=== PATIENT | male | born 1945 | race Caucasian/White ===

== ENCOUNTER 2017-10-16 17:19 | Observation (INO) ==
[2017-10-16] MEDS ORDERED: Furosemide 40 MG TABLET PO ONE (19:45)
--- NOTE | 2017-10-16 19:49 | Emergency Department Note ---
Disposition Clinical Impression: Localized swelling of both lower legs Disposition: Admitted As Inpatient Condition: Fair Referrals: Marquis Lee DO [Primary Care Provider] - Forms: ED Satisfaction Letter Time of Disposition: 19:59 General Adult HPI - General Chief complaint: ED Shortness of Breath/Dyspnea Stated complaint: GAGAN, "CHF, abnormal labs" Time Seen by Provider: 10/16/17 17:48 Source: patient Mode of arrival: ambulatory Limitations: no limitations Nursing Notes Reviewed: Yes Vital Signs Reviewed: Yes - History of Present Illness HPI Narrative: 72M presenting with increased shortness of breath, orthopnea, dyspnea on exertion, bilateral leg swelling worsening since about 2 weeks ago. PMH significant for HTN, smoking, alcohol use, no ND/stroke. He has not been diagnosed with CHF. He denies fever, headache, chest pain, productive cough, or abdominal pain. He was recently here for pancreatitis, discharged 10/14. Pain Scale: 0 - Related Data Home Medications Medication Instructions Recorded Confirmed RX: Aspirin [Adult Low Dose 81 mg PO DAILY 04/22/15 10/16/17 Aspirin EC] RX: Metoprolol [Lopressor] 50 mg PO BID 04/22/15 10/16/17 RX: Ranitidine HCl [Zantac] 150 mg PO DAILY 04/22/15 10/16/17 RX: Simvastatin [Zocor] 20 mg PO HS 04/22/15 10/16/17 RX: Tamsulosin [Flomax] 0.4 mg PO DAILY 04/22/15 10/16/17 RX: Cyanocobalamin (Vitamin B-12) 1,000 mcg PO DAILY 10/11/17 10/16/17 [Vitamin B12] RX: HYDROcodone/Acet 5/325 mg 1 tab PO BID PRN 10/11/17 10/16/17 [[place] 5-325 mg] RX: Lisinopril [Zestril] 20 mg PO DAILY 10/11/17 10/16/17 RX: Magnesium Oxide [Mag-Ox] 400 mg PO DAILY 10/11/17 10/16/17 RX: Multivitamin [One Daily 1 each PO DAILY 10/11/17 10/16/17 Multivitamin] RX: Ondansetron ODT [Zofran ODT] 4 mg PO Q4-6H PRN 10/11/17 10/16/17 Previous Rx's Medication Instructions Recorded Pantoprazole Sodium [Protonix] 40 mg PO DAILY 7 Days #7 tablet. 10/14/17 Allergies Allergy/AdvReac Type Severity Reaction Status Date / Time venom-honey bee Allergy Swelling Verified 10/16/17 17:30 [bee venom (honey bee)] of Lip/Tongue/Throat All systems ED: reviewed and negative except as stated. Constitutional: Denies: fever Eyes: Denies: vision change Cardiovascular: Reports: dyspnea on exertion. Denies: chest pain Respiratory: Denies: cough, wheezes Gastrointestinal: Denies: abdominal pain, nausea, vomiting Genitourinary: Denies: dysuria Musculoskeletal: Denies: back pain Integumentary: Reports: other (leg swelling) Neurological: Denies: headache Psychiatric: Denies: anxiety Endocrine: Denies: fatigue Past Medical History - Past Medical History Medical history: Reports: CHF, diabetes, hypertension, renal disease, other Surgical history: Reports: appendectomy, herniorrhaphy, other Psychiatric history: Reports: no psych history - Social History Smoking Status: Current every day smoker Smokeless Tobacco Status: No Alcohol use: Reports: heavy Drug use: Reports: none Physical Exam - General Limitations: no limitations General appearance: alert - Head Head exam: atraumatic, normocephalic - Eye Eye exam: Present: EOMI - Respiratory Respiratory exam: Present: normal lung sounds bilaterally. Absent: respiratory distress - Cardiovascular Cardiovascular exam: Present: regular rate, normal rhythm. Absent: JVD - Abdominal Exam Abdominal exam: Present: soft, Non-Tender - Extremities Exam Extremities exam: Present: pedal edema. Absent: calf tenderness - Neurological Exam Neurological exam: Present: alert, oriented X3 - Psychiatric Psychiatric exam: Present: normal affect - Skin Skin exam: Present: warm. Absent: cyanosis, diaphoresis Course Course Narrative: 72M on exam shows bilateral lower extremity swelling, dyspnea on exertion, orthopnea. His lungs are clear, heart sounds unremarkable, normal vital signs except for elevated blood pressure. CXR does not show cardiopulmonary process. His BNP is 390. ECG shows no st elevation or depression. We are giving him Lasix 40mg for swelling and Lopressor 5mg IVP for his elevated BPs. While his lab/imaging workup does not strongly correlate with CHF, his presentation with precipitous drop in physical activity tolerance is concerning for inpatient evaluation. This case was discussed with the admitting hospitalist who has kindly agreed to evaluate him for possible CHF exacerbation. Vital Signs Temperature 98.1 F 10/16/17 17:31 Pulse Rate 75 10/16/17 17:31 Respiratory Rate 24 10/16/17 17:31 Blood Pressure 194/104 10/16/17 17:31 O2 Sat by Pulse Oximetry 98 10/16/17 17:31 Temperature 98.1 F 10/16/17 17:31 Pulse Rate 75 10/16/17 17:31 Respiratory Rate 24 10/16/17 17:31 Blood Pressure 194/104 10/16/17 17:31 O2 Sat by Pulse Oximetry 98 10/16/17 17:31 Oxygen Delivery Oxygen Delivery Room Air Medical Decision Making - Medical Records Medical records reviewed: Yes I reviewed the patient's medical records. - Lab Data Lab results reviewed: Yes I reviewed the patient's lab results. Result diagrams: 10/16/17 19:03 Lab Results 10/16/17 10/16/17 Range/Units 19:03 19:03 Sodium 135 L (136-145) mEq/L Potassium 4.7 (3.5-5.1) mEq/L Chloride 102 (98-107) mEq/L Carbon Dioxide 25 (23-29) mEq/L BUN 13 (8-23) mg/dL Creatinine 0.92 (0.70-1.30) mg/dL Est GFR ( Amer) > 60 (> 60) Est GFR (Non-Af Amer) > 60 (> 60) BUN/Creatinine Ratio 14 (6-26) Glucose 90 (70-105) mg/dL Calculated Osmolality 280 (280-300) Calcium 9.6 (8.6-10.3) mg/dL Troponin I < 0.03 (< 0.04) ng/mL B-Natriuretic Peptide 434 H (Less than 100) pg/mL - Radiology Data Radiology results reviewed: Yes I reviewed the patient's radiology results. Chest X-Ray 10/16/17 18:37 IMPRESSION: 1. Senescent pulmonary changes. 2. Calcific atherosclerosis aorta. 3. Sequela from old granulomatous disease. D/ / Lon Peter / Lon Peter Interpreting Provider: Lon Peter - EKG Data EKG #1 EKG attestation: Yes I reviewed and interpreted this EKG.
[2017-10-16 19:52] LABS: Troponin I < 0.03 ng/mL (< 0.04)
[2017-10-16 19:53] LABS: BUN/Creatinine Ratio 14 (6-26); Blood Urea Nitrogen 13 mg/dL (8-23); Calcium 9.6 mg/dL (8.6-10.3); Carbon Dioxide 25 mEq/L (23-29); Chloride 102 mEq/L (98-107); Glucose 90 mg/dL (70-105); Osmolality,Calculated 280 (280-300); Potassium 4.7 mEq/L (3.5-5.1); Sodium 135 mEq/L (136-145); eGFR For African Americans > 60 (> 60); eGFR For Non-African Americans > 60 (> 60)
[2017-10-16] MEDS ORDERED: *HR* Metoprolol 5 MG/5 ML VIAL IVP ONE (19:57)
--- NOTE | 2017-10-16 20:17 | Emergency Department Note ---
START Narrative - START START: I examined this patient and my medical decision-making was reviewed with the Resident Physician. I agree with the documented findings, disposition and treatment plan as described except to the extent set forth below. 72-year-old male had presented to the emergency room for dyspnea. States is worse with exertion. He is unable to ambulate around the house before coming short of breath. This is new for him as well as the bilateral lower extremity edema. Patient was admitted to the hospital last week for pancreatitis. He states the swelling in his legs is symmetrical in his bowels both lower extremities. He started having some of the shortness of breath prior to his admission. Feels like its getting worse now. His chest x-ray does not show any significant volume overload nor is his BNP significantly elevated however on clinical exam he does have lots of swelling in his lower legs and he states he is very dyspneic on with exertion. I feel he needs to be admitted for further cardiac workup with an echo and cardiology evaluation.
--- NOTE | 2017-10-16 21:38 | Internal Med History&Physical ---
Date of Encounter: 10/16/17 Time of Encounter: 21:00 Assessment and Plan (1) Bilateral lower extremity edema Current visit: Yes Status: Acute Patient reports of bilateral lower extremity edema for the last 2 weeks. BNP slightly elevated and chest x-ray without signs vascular congestion Will continue IV diuresis started in the ER Will also order echocardiogram (2) Dyspnea on exertion Current visit: Yes Status: Acute Patient with lower extremity edema as above with slightly elevated BNP Echocardiogra ordered as above (3) Mass of pancreas Current visit: No Status: Suspected Pancreatic head mass was discovered on CT abdomen last admission for acute pancreatitis Recommendations for consideration of contrast-enhanced MRI after resolution of pancreatitis as an outpatient; lipase levels slightly elevated on admission (4) HTN (hypertension), benign Current visit: Yes Status: Acute Will continue home dose of beta lilo and VIKI inhibitor (5) HLD (hyperlipidemia) Current visit: Yes Status: Acute Continue statin Qualifiers: Hyperlipidemia type: unspecified Qualified Code(s): E78.5 - Hyperlipidemia , unspecified (6) BPH (benign prostatic hyperplasia) Current visit: Yes Status: Acute Continue Flomax Qualifiers: Lower urinary tract symptom detail: unspecified Qualified Code(s): N40.1 - Benign prostatic hyperplasia with lower urinary tract symptoms (7) Smoker Current visit: Yes Status: Acute Smoking cessation (8) DVT prophylaxis Current visit: No Status: Acute Subcutaneous heparin Internal Medicine - H&P: HPI Admitted From: Home Plans for Post Hospital Care: Home History of present illness: Patient is a 72-year-old male with past medical history significant for hypertension, GERD, BPH, 50 pack year smoker, former alcohol dependence and recent pancreatitis who presents to the ER on 10/16/17 due to worsening shortness of breath and lower extremity swelling. Patient reports of noticing dyspnea on exertion which has gradually gotten worse over the last year. He did notice significant change in the last 2 weeks in addition to the onset of lower extremity edema. Patient was recently discharged on 10/14/17 for acute pancreatitis and was seen at primary care providers office today for follow-up. Labs are drawn and patient was found to have elevated BNP and was directed to go to the ER for further evaluation. The ER, patient was found to have a BNP of 380 but chest x-ray with no evidence of vascular congestion. Patient did have bilateral lower extremity edema present on exam. He will be admitted to medical surgical floor for further evaluation and management. Past Med Surg Social Fam HX - Past Medical History Medical history: CHF, diabetes, hypertension, renal disease, other Psychiatric history: no psych history - Past Surgical History Surgical History: appendectomy, herniorrhaphy, other - Social History Smoking Status: Current every day smoker Smokeless Tobacco Status: No Alcohol use: heavy Drug use: none Internal Medicine - H&P: Meds Aspirin [Adult Low Dose Aspirin EC] 81 mg PO DAILY 04/22/15 [History] Metoprolol [Lopressor] 50 mg PO BID 04/22/15 [History] Ranitidine HCl [Zantac] 150 mg PO DAILY 04/22/15 [History] Simvastatin [Zocor] 20 mg PO HS 04/22/15 [History] Tamsulosin [Flomax] 0.4 mg PO DAILY 04/22/15 [History] Cyanocobalamin (Vitamin B-12) [Vitamin B12] 1,000 mcg PO DAILY 10/11/17 [History ] HYDROcodone/Acet 5/325 mg [[place] 5-325 mg] 1 tab PO BID PRN 10/11/17 [History] Lisinopril [Zestril] 20 mg PO DAILY 10/11/17 [History] Magnesium Oxide [Mag-Ox] 400 mg PO DAILY 10/11/17 [History] Multivitamin [One Daily Multivitamin] 1 each PO DAILY 10/11/17 [History] Ondansetron ODT [Zofran ODT] 4 mg PO Q4-6H PRN 10/11/17 [History] Pantoprazole Sodium [Protonix] 40 mg PO DAILY 7 Days #7 tablet. 10/14/17 [Rx] 3 Allergy/AdvReac Type Severity Reaction Status Date / Time venom-honey bee Allergy Swelling Verified 10/16/17 17:30 [bee venom (honey bee)] of Lip/Tongue/Throat All Systems PM: A 10-system review of systems was performed and is negative for pertinent findings except as documented above in the HPI. - Constitutional Vitals: Temp Pulse Resp BP Pulse Ox 98.1 F 74 18 183/106 94 10/16/17 17:31 10/16/17 20:34 10/16/17 20:34 10/16/17 20:34 10/16/17 20:34 General appearance: Present: A&O X 3, no acute distress, obese - Head Head exam: Present: normocephalic - Eye Eye exam: Present: normal appearance - ENT ENT exam: Present: mucous membranes moist - Respiratory Respiratory exam: Present: CTAB. Absent: accessory muscle use, rales, rhonchi, wheezes - Cardiovascular Cardiovascular exam: Present: RRR, +S1, +S2. Absent: diastolic murmur, gallop, rubs, systolic murmur - GI/Abdominal GI/Abdominal exam: Present: normal bowel sounds, soft, no peritoneal signs. Absent: distended, tenderness - Expanded Lower Extremities Exam Lower Leg exam: Present: swelling (Bilateral lower extremity edema up to the knee) - Neurological Exam Neurological exam: Present: oriented X3 - Psychiatric Psychiatric exam: Present: normal mood - Skin Skin exam: Present: normal color Internal Med - H&P Results - Labs CBC & Chem 7: 10/16/17 19:03 Labs: BMP 10/16/17 19:03 Sodium 135 L Potassium 4.7 Chloride 102 Carbon Dioxide 25 BUN 13 Creatinine 0.92 Glucose 90 Calcium 9.6 Cardiac Enzymes 10/16/17 Range/Units 19:03 Troponin I < 0.03 (< 0.04) ng/mL - Impressions ITS Impressions Chest X-Ray 10/16/17 18:37 IMPRESSION: 1. Senescent pulmonary changes. 2. Calcific atherosclerosis aorta. 3. Sequela from old granulomatous disease. D/ / Lon Peter / Lon Peter Interpreting Provider: Lon Peter
[2017-10-16] MEDS ORDERED: Naloxone 0.4 MG/ML INJ IVP PRN (21:47)
[2017-10-16] MEDS ORDERED: *HR* HYDROcodone/Acet 5/325 mg TABLET PO PRN (21:49)
[2017-10-16] MEDS ORDERED: Ondansetron ODT 4 MG TAB.RAPDIS PO PRN (23:02)
[2017-10-16] MEDS: *HR* Heparin 5,000 UNIT/ML VIAL SQ SCH (23:22)
[2017-10-17 04:16] LABS: Basophils % 0.4 %; Eosinophils # 0.1 K/mcL (0.0-0.6); Eosinophils % 1.9 %; Hematocrit 39.6 % (37.5-50.1); Hemoglobin 13.9 g/dL (12.9-16.9); Immature Granulocytes % 0.5 % (0-4); Lymphocytes # 1.3 K/mcL (0.6-4.6); Lymphocytes % 17.9 %; Mean Corpuscular HGB Conc 35.1 g/dL (31.6-35.5); Mean Corpuscular Hemoglobin 35.5 pg (28.0-33.3); Mean Corpuscular Volume 101.3 fL (83.0-100.0); Mean Platelet Volume 9.7 fL (9.4-12.4); Monocytes # 1.1 K/mcL (0.0-1.3); Monocytes % 14.6 %; Neutrophils # 4.8 K/mcL (1.6-8.9); Platelet Count 177 K/mcL (140-400); Red Blood Count 3.91 M/mcL (4.19-5.50); Red Cell Distribution Width 13.2 % (11.5-14.5); Segmented Neutrophils % 64.7 %
[2017-10-17 04:36] LABS: Troponin I 0.03 ng/mL (< 0.04)
[2017-10-17 04:38] LABS: BUN/Creatinine Ratio 14 (6-26); Blood Urea Nitrogen 13 mg/dL (8-23); Calcium 9.6 mg/dL (8.6-10.3); Carbon Dioxide 24 mEq/L (23-29); Chloride 99 mEq/L (98-107); Glucose 90 mg/dL (70-105); Osmolality,Calculated 282 (280-300); Potassium 3.8 mEq/L (3.5-5.1); Sodium 136 mEq/L (136-145); eGFR For African Americans > 60 (> 60); eGFR For Non-African Americans > 60 (> 60)
[2017-10-17] MEDS: *HR* Heparin 5,000 UNIT/ML VIAL SQ SCH ×3 (05:13→22:27)
[2017-10-17] MEDS: Aspirin Enteric Coated 81 MG Tablet PO SCH (08:47)
[2017-10-17] MEDS: Magnesium Oxide 400 MG TABLET PO SCH (08:47)
[2017-10-17] MEDS: Lisinopril 20 MG TABLET PO SCH (08:47)
[2017-10-17] MEDS: Acetaminophen 325 MG TABLET PO PRN ×2 (08:47→22:33)
[2017-10-17] MEDS: Multivit/Ca/Min/Fe/FA 1 TAB TABLET PO SCH (08:48)
[2017-10-17] MEDS: Cyanocobalamin (B-12) 1,000 MCG TABLET PO SCH (08:48)
[2017-10-17] MEDS: Furosemide 40 MG/4 ML VIAL IVP SCH ×2 (08:48→19:41)
[2017-10-17] MEDS ORDERED: Perflutren Lipid Microsphere 1.3 ML in 0.9 % Sodium Chloride 8.7 ML IVP ONE (10:23)
--- NOTE | 2017-10-17 10:30 | Internal Med Progress Note ---
Date of Encounter: 10/17/17 Time of Encounter: 09:00 - Assessment and plan (1) Mass of pancreas Current Visit: No Status: Suspected Assessment and plan: Concerning for malignancy. Further workup as outpatient. (2) DVT prophylaxis Current Visit: No Status: Acute Assessment and plan: Subcutaneous heparin. (3) Bilateral lower extremity edema Current Visit: Yes Status: Acute Assessment and plan: Patient presents with symptoms concerning for acute decompensated congestive heart failure.? Chronic component. I suspect this may be due to diastolic CHF given his elevated blood pressures. Cannot rule out ischemic or alcoholic cardiomyopathy as well. Echocardiogram is pending. Continue with IV Lasix twice a day as renal function allows. Continue beta lilo namely Lopressor 50 mg by mouth twice a day. Aspirin 81 mg by mouth daily. Await echo studies. Further tighten blood pressure control. (4) Dyspnea on exertion Current Visit: Yes Status: Acute (5) BPH (benign prostatic hyperplasia) Current Visit: Yes Status: Acute Qualifiers: Lower urinary tract symptom detail: unspecified Qualified Code(s): N40.1 - Benign prostatic hyperplasia with lower urinary tract symptoms (6) Smoker Current Visit: Yes Status: Acute Assessment and plan: Counseling. (7) HLD (hyperlipidemia) Current Visit: Yes Status: Acute Qualifiers: Hyperlipidemia type: unspecified Qualified Code(s): E78.5 - Hyperlipidemia , unspecified (8) HTN (hypertension), benign Current Visit: Yes Status: Acute Assessment and plan: Blood pressure remains elevated. I will increase his Lopressor to 100 mg by mouth twice a day. Monitor. - Time Spent With Patient Total time spent is greater than 50% in coordination of care (as documented) at patient's floor/unit and/or counseling patient: 25 - 35 minutes - Subjective Interval history: Hosp Course (adm 10/11-10/14/17) Mr. Springer is a 72 year old male admitted for acute pancreatitis. He was admitted to general medical floor. He was made NPO and started on IVF. Nausea/ vomiting and pain were controlled with anti-emetics and oxycodone. Patient improved throughout admission. Lipase normalized the day after admission. He was started on clear liquid diet on day 2. He tolerated this well. He had an episode of SOB after ambulating to the bathroom overnight. EKG and troponins were obtained and were WNL. It was thought that he may have had some withdrawal symptoms. Issues resolved with supplemental O2 and ativan. This morning, he was feeling better with no similar episodes. He states that pain has resolved. He tolerated a regular diet for breakfast this morning. He wants to go home. He has been counselled on alcohol and tobacco cessation for 10 minutes today. He will complete 7 days of PO protonix as outpatient, then this medication will be discontinued. He will follow up with PCP in 2-3 days after discharge. PCP can refer him for contrast MRI to further evaluate pancreatic mass noted on CT abdomen, once he is fully over this episode of acute pancreatitis. Patient has met maximum benefit of this hospitalization and will be discharged home in stable condition. Adm 10/16/17: CC: SOB HPI:Patient is a 72-year-old male with past medical history significant for hypertension, GERD, BPH, 50 pack year smoker, former alcohol dependence and recent pancreatitis who presents to the ER on 10/16/17 due to worsening shortness of breath and lower extremity swelling. Patient reports of noticing dyspnea on exertion which has gradually gotten worse over the last year. He did notice significant change in the last 2 weeks in addition to the onset of lower extremity edema. Patient was recently discharged on 10/14/17 for acute pancreatitis and was seen at primary care providers office today for follow-up. Labs are drawn and patient was found to have elevated BNP and was directed to go to the ER for further evaluation. The ER, patient was found to have a BNP of 380 but chest x-ray with no evidence of vascular congestion. Patient did have bilateral lower extremity edema present on exam. He will be admitted to medical surgical floor for further evaluation and management. 10/17: Today patient states his breathing is much improved. He has been diuresing well with IV Lasix. She states he has been noticing progressive shortness of breath since discharge from the hospital. Patient denies any chest pain. No nausea, vomiting, diarrhea. No abdominal pain. No fevers or chills. He continues to have swelling in his legs but states it is not any different than usual. - Constitutional Vitals: Temp Pulse Resp BP Pulse Ox 98.3 F 88 16 156/83 96 10/17/17 07:19 10/17/17 07:24 10/17/17 07:19 10/17/17 07:19 10/17/17 07:19 General appearance: Present: A&O X 3, no acute distress, obese Internal Medicine: Result - Labs CBC & Chem 7: 10/17/17 03:35 10/17/17 03:35 Labs: Short CBC 10/17/17 Range/Units 03:35 WBC 7.5 (4.3-11.1) K/mcL Hgb 13.9 (12.9-16.9) g/dL Hct 39.6 (37.5-50.1) % Plt Count 177 (140-400) K/mcL Neutrophils # 4.8 (1.6-8.9) K/mcL BMP 10/17/17 03:35 Sodium 136 Potassium 3.8 Chloride 99 Carbon Dioxide 24 BUN 13 Creatinine 0.95 Glucose 90 Calcium 9.6 Cardiac Enzymes 10/16/17 10/17/17 10/17/17 Range/Units 23:06 03:35 09:29 Troponin I 0.03 0.03 < 0.03 (< 0.04) ng/mL Consult Discharge Plan - Plan Referrals: Marquis Lee DO [Primary Care Provider] - 10/24/17 9:45 am
--- NOTE | 2017-10-17 19:33 | Electrocardiograph Report ---
[address] [address] Test Date: 2017-10-16 Pat Name: Braulio Springer Department: 103 Room: 3B Gender: M Procurement Agent: LRS : [id number] Requested By: Hudson Garcia Order Number: [id number] Reading MD: Joshua Vitale Measurements Intervals [place] Rate: 77 P: 49 MI: 189 QRS: -18 QRSD: 104 T: -1 QT: 393 QTc: 425 Interpretive Statements SINUS RHYTHM WITH FREQUENT VENTRICULAR PREMATURE COMPLEXES BASELINE ARTIFACT Electronically Signed On 10-17-2017 19:32:03 EDT by Joshua Vitale
[2017-10-17] MEDS: Metoprolol 100 MG TABLET PO SCH (19:41)
[2017-10-18] MEDS: *HR* Heparin 5,000 UNIT/ML VIAL SQ SCH (05:56)
[2017-10-18] MEDS: Acetaminophen 325 MG TABLET PO PRN (06:07)
[2017-10-18 06:21] LABS: Hematocrit 40.9 % (37.5-50.1); Hemoglobin 14.3 g/dL (12.9-16.9); Mean Corpuscular Hemoglobin 35.5 pg (28.0-33.3); Mean Corpuscular Volume 101.5 fL (83.0-100.0); Mean Platelet Volume 9.7 fL (9.4-12.4); Platelet Count 200 K/mcL (140-400); Red Blood Count 4.03 M/mcL (4.19-5.50); Red Cell Distribution Width 13.2 % (11.5-14.5)
[2017-10-18 06:47] LABS: BUN/Creatinine Ratio 19 (6-26); Blood Urea Nitrogen 20 mg/dL (8-23); Calcium 9.5 mg/dL (8.6-10.3); Carbon Dioxide 30 mEq/L (23-29); Chloride 100 mEq/L (98-107); Glucose 110 mg/dL (70-105); Osmolality,Calculated 291 (280-300); Potassium 3.2 mEq/L (3.5-5.1); Sodium 139 mEq/L (136-145); eGFR For African Americans > 60 (> 60); eGFR For Non-African Americans > 60 (> 60)
[2017-10-18 06:58] LABS: Thyroid Stimulating Hormone 2.195 mcIU/mL (0.340-5.600)
[2017-10-18] MEDS ORDERED: hydrALAZINE 25 MG TABLET PO SCH (09:00)
[2017-10-18] MEDS: Lisinopril 20 MG TABLET PO SCH (09:25)
[2017-10-18] MEDS: Magnesium Oxide 400 MG TABLET PO SCH (09:25)
[2017-10-18] MEDS: Cyanocobalamin (B-12) 1,000 MCG TABLET PO SCH (09:25)
[2017-10-18] MEDS: Multivit/Ca/Min/Fe/FA 1 TAB TABLET PO SCH (09:25)
[2017-10-18] MEDS: Metoprolol 100 MG TABLET PO SCH (09:25)
[2017-10-18] MEDS: Aspirin Enteric Coated 81 MG Tablet PO SCH (09:26)
[2017-10-18] MEDS: Furosemide 40 MG/4 ML VIAL IVP SCH (09:26)
--- NOTE | 2017-10-18 09:46 | Discharge Summary ---
- NOTES TO OUTPATIENT PROVIDER Notes to Outpatient Provider: Patient was admitted with acute on chronic diastolic CHF. Was started on Lasix and will need his renal function checked along with electrolytes in 2-3 days. Recommend close follow-up. We also uptitrated his blood pressure medications and added in hydralazine as well. Recc outpt sleep study. MRI pancreas as previosuly recc. Orders not resulted at time of discharge: Pending orders 10/19/17 04:00 Basic Metabolic Panel AM 0400 Complete Blood Count w/o Diff [HEME] AM 0400 10/20/17 04:00 Basic Metabolic Panel AM 0400 Complete Blood Count w/o Diff [HEME] AM 0400 Date of Encounter: 10/18/17 Time of Encounter: 09:00 - Discharge Diagnosis (1) Acute on chronic diastolic CHF (congestive heart failure) Priority: Primary Status: Acute (2) Mass of pancreas Priority: Secondary Status: Suspected Comments: Outpatient workup as previously arranged (3) BPH (benign prostatic hyperplasia) Priority: Secondary Status: Acute Qualifiers: Lower urinary tract symptom detail: unspecified Qualified Code(s): N40.1 - Benign prostatic hyperplasia with lower urinary tract symptoms (4) Smoker Priority: Secondary Status: Acute (5) HLD (hyperlipidemia) Priority: Secondary Status: Acute Qualifiers: Hyperlipidemia type: unspecified Qualified Code(s): E78.5 - Hyperlipidemia , unspecified (6) HTN (hypertension), benign Priority: Secondary Status: Acute Hospital course: Hosp Course from previous admission (adm 10/11-10/14/17) Mr. Springer is a 72 year old male admitted for acute pancreatitis. He was admitted to general medical floor. He was made NPO and started on IVF. Nausea/ vomiting and pain were controlled with anti-emetics and oxycodone. Patient improved throughout admission. Lipase normalized the day after admission. He was started on clear liquid diet on day 2. He tolerated this well. He had an episode of SOB after ambulating to the bathroom overnight. EKG and troponins were obtained and were WNL. It was thought that he may have had some withdrawal symptoms. Issues resolved with supplemental O2 and ativan. This morning, he was feeling better with no similar episodes. He states that pain has resolved. He tolerated a regular diet for breakfast this morning. He wants to go home. He has been counselled on alcohol and tobacco cessation for 10 minutes today. He will complete 7 days of PO protonix as outpatient, then this medication will be discontinued. He will follow up with PCP in 2-3 days after discharge. PCP can refer him for contrast MRI to further evaluate pancreatic mass noted on CT abdomen, once he is fully over this episode of acute pancreatitis. 10/19/27: Present Admission/Hospital Course: Patient was admitted and placed on IV Lasix 40 mg twice a day. He diuresed over 4 L with this. He remained hypertensive and his blood pressure medications were uptitrated to Lopressor 100 mg by mouth twice a day and lisinopril 20 mg by mouth daily. Additionally hydralazine 25 mg by mouth twice a day was added. Echo did not definitively diagnose diastolic dysfunction, but in the setting of chronic hypertension it was suspected that patient did have acute on chronic diastolic dysfunction. On day of discharge he was feeling well. Satting well on room air and ambulatory. BP control improved. I had a long discussion with the patient about CHF and precipitating factors, also emphasized the importance of checking daily weights. I also discussed this with his . We discussed smoking cessation as well as a low-salt diet. He will need close follow-up with his primary care provider including a BMP in 2-3 days to assess renal function and electrolytes as well as magnesium level. Also will need follow-up with his primary care provider within a week or so, likely needing further adjustment of his antihypertensive medications. Recc outpt sleep study as well. CHF Core Measures: Beta lilo ordered Patient counseled on smoking cessation Patient is on VIKI inhibitor No atrial fibrillation CHF discharge instructions provided Echocardiogram performed this admission Patient had an echocardiogram done this admission which showed an EF of 65% with septal hypertrophy, borderline pulmonary hypertension. No other significant abnormalities noted. Study was not technically sufficient to diagnose diastolic dysfunction. Patient is deemed stable for discharge. 38 minutes spent on discharge and coordination of care. Pancreatic mass follow up as indicated above from first hosp course. Discharge discussed with: patient, other () Time spent discussing smoking cessation with patient: 3 to 10 minutes - Time Spent with Patient Total time spent providing and/or coordinating discharge services: Greater than 30 minutes (38 minutes) - Discharge Medications Prescriptions: hydrALAZINE [HydrALAZINE] 25 mg PO Q8HR 30 Days #90 tablet Furosemide [Lasix] 40 mg PO BID 30 Days #60 tab Magnesium Oxide [Mag-Ox] 400 mg PO BID 30 Days #60 tablet Metoprolol [Lopressor] 100 mg PO BID 30 Days #60 tablet Potassium Chloride 20 meq PO BID 30 Days #60 tab.er.prt Home Medications: Aspirin [Adult Low Dose Aspirin EC] 81 mg PO DAILY 04/22/15 [History] Ranitidine HCl [Zantac] 150 mg PO DAILY 04/22/15 [History] Simvastatin [Zocor] 20 mg PO HS 04/22/15 [History] Tamsulosin [Flomax] 0.4 mg PO DAILY 04/22/15 [History] Cyanocobalamin (Vitamin B-12) [Vitamin B12] 1,000 mcg PO DAILY 10/11/17 [History ] HYDROcodone/Acet 5/325 mg [[place] 5-325 mg] 1 tab PO BID PRN 10/11/17 [History] Lisinopril [Zestril] 20 mg PO DAILY 10/11/17 [History] Multivitamin [One Daily Multivitamin] 1 each PO DAILY 10/11/17 [History] Pantoprazole Sodium [Protonix] 40 mg PO DAILY 7 Days #7 tablet. 10/14/17 [Rx] Furosemide [Lasix] 40 mg PO BID 30 Days #60 tab 10/18/17 [Rx] Magnesium Oxide [Mag-Ox] 400 mg PO BID 30 Days #60 tablet 10/18/17 [Rx] Metoprolol [Lopressor] 100 mg PO BID 30 Days #60 tablet 10/18/17 [Rx] Potassium Chloride 20 meq PO BID 30 Days #60 tab.er.prt 10/18/17 [Rx] hydrALAZINE [HydrALAZINE] 25 mg PO Q8HR 30 Days #90 tablet 10/18/17 [Rx] Allergies/Adverse Reactions: 3 Allergy/AdvReac Type Severity Reaction Status Date / Time venom-honey bee Allergy Swelling Verified 10/16/17 17:30 [bee venom (honey bee)] of Lip/Tongue/Throat Date of admission: 10/16/17 21:11 Primary care physician: Marquis Lee DO Discharging clinician: Sylvain Shane Anticipated date of discharge: 10/18/17 - Constitutional Vitals: Temp Pulse Resp BP Pulse Ox 98.3 F 60 14 171/83 94 10/18/17 06:29 10/18/17 06:29 10/18/17 06:29 10/18/17 06:29 10/18/17 06:29 General appearance: Present: A&O X 3, no acute distress, obese - Head Head exam: Present: atraumatic, normocephalic - Eye Eye exam: Present: PERRL, conjuntiva pink, sclera anicteric Pupils: Present: PERRL - Neck Neck exam general surgery: Present: supple, trachea midline. Absent: lymphadenopathy - Respiratory Respiratory exam: Present: rales (Sig improved) - Cardiovascular Cardiovascular exam: Present: RRR, +S1, +S2. Absent: diastolic murmur, gallop, rubs, systolic murmur - GI/Abdominal GI/Abdominal exam: Present: normal bowel sounds, soft, no peritoneal signs. Absent: distended, tenderness - Extremities Exam Extremities exam: Present: warm, radial pulses palpable and symmetrical. Absent : calf tenderness, cyanotic, pedal edema Additional comments: tr edema, sig improved - Neurological Exam Neurological exam: Present: CN II-XII intact, oriented X3, no focal deficits. Absent: pronater drift, facial droop, speech deficit - Skin Skin exam: Present: dry, intact - Patient Status Disposition: Home, Self-Care Condition: Good Functional capacity at discharge: independent ambulation Overall status at discharge: patient is back to baseline - Ambulatory Orders Ambulatory Orders: Basic Metabolic Panel [CHEM] Time Frame: 3 Days, Facility: [facility], Location: Lab Magnesium [CHEM] Time Frame: 3 Days, Facility: [facility], Location: Lab - Discharge Instructions Instructions: Furosemide (By mouth), Potassium Chloride (By mouth), Hydralazine (By mouth), Magnesium Oxide (By mouth) Follow Up With: Marquis Lee DO [Primary Care Provider] - 10/24/17 9:45 am
[2017-10-18 10:47] VITALS: BP 146/75
== END 2017-10-18 12:15 | disposition home or self-care (01) ==
LOC: EMEROO 17:19 → 2NNU 17:19 → 3BNU 10-17 13:58
PROVIDERS: ADMIT Internal Medicine; ATTEND Internal Medicine